=== PATIENT | female | born 1995 | race African-American/Black ===

== ENCOUNTER 2022-01-20 18:15 | Emergency (ER) | payer MEDICAID ==
[~2022-01-20] VITALS: Ht 149.9 cm; Wt 70.3 kg
--- NOTE | 2022-01-20 18:36 | NUR ---
BIBS STATES "I had an 3wks ago since then been feeling SOB and my feet feels swollen/tender". TO ER BED 1, HOOKED TO MONITOR, CHANGED TO [facility]OS[facility], WARM BLANKET PROVIDED. AWAITING MD SAMSON
--- NOTE | 2022-01-20 19:01 | NUR ---
DR GROSS AT BEDSIDE
--- NOTE | 2022-01-20 19:25 | NUR ---
RECEIVED REPORT FROM SUE SLAUGHTER FOR ANALILIA
--- NOTE | 2022-01-20 19:26 | NUR ---
LAB AT BEDSIDE
--- NOTE | 2022-01-20 19:33 | NUR ---
PT RESTING COMFORTABLY IN BED, PROVIDED WARM BLANKET. DENIES ANY PAIN AT THIS TIME. WILL CONTINUE TO MONITOR.
--- NOTE | 2022-01-20 19:38 | NUR ---
XRAY AT BEDSIDE
--- NOTE | 2022-01-20 19:47 | NUR ---
URINE SAMPLE COLLECTED AND SENT TO LAB
[2022-01-20 20:00] LABS: D-DIMER 0.22 mg/L(FEU (0.17-0.50)
[2022-01-20 20:10] LABS: BASOPHILS # (AUTO) 0.1 K/uL (0.0-0.2); BASOPHILS % (AUTO) 0.9 % (0.0-2.0); EOSINOPHILS % (AUTO) 3.9 % (0.0-6.0); HEMATOCRIT 38 % (33-45); HEMOGLOBIN 12.6 g/dL (11.5-14.8); LYMPHOCYTES # (AUTO) 4.1 K/uL (0.8-4.8); LYMPHOCYTES % (AUTO) 46.7 % (20.0-44.0); MEAN CORPUSCULAR HGB CONC 33 g/dl (31.0-36.0); MEAN CORPUSCULAR VOLUME 92 fL (82-100); MONOCYTES # (AUTO) 0.6 K/uL (0.1-1.30); MONOCYTES % (AUTO) 7.2 % (2.0-12.0); NEUTROPHILS # (AUTO) 3.7 K/uL (1.8-8.9); NEUTROPHILS % (AUTO) 41.3 % (43.0-81.0); PLATELET COUNT (AUTO) 318 K/uL (150-450); RED BLOOD CELL COUNT(AUTO) 4.13 MIL/uL (4.0-5.2); WHITE BLOOD COUNT (AUTO) 8.9 K/uL (4.3-11.0)
[2022-01-20 20:47] LABS: CREATININE 0.7 mg/dL (0.6-1.3); POTASSIUM 3.6 mmol/L (3.5-5.1)
[2022-01-20 21:25] LABS: CALCIUM, SERUM 9.8 mg/dL (8.5-10.1)
--- NOTE | 2022-01-20 21:34 | NUR ---
Patient discharged to home in stable condition. Written and verbal after care instructions given. Patient verbalizes understanding of instruction.
[2022-01-20 21:35] VITALS: BP 123/81
== END 2022-01-20 21:35 | disposition home or self-care (01) ==
LOC: ER 18:15
DX: R07.89 Other chest pain (principal); R06.02 Shortness of breath
CPT/HCPCS: 36415; 71045-TC; 80048-TC; 83735-TC; 83880; 84443-TC; 84484-TC; 84703-TC; 85025-TC; 85378-TC; 85730-TC

== ENCOUNTER 2022-06-16 12:48 | Emergency (ER) | payer MEDICAID ==
[~2022-06-16] VITALS: Ht 149.9 cm; Wt 69.9 kg
[2022-06-16 13:06] VITALS: BP 115/69
[2022-06-16] MEDS ORDERED: LORATADINE 10 MG TABLET PO SCH (14:00)
--- NOTE | 2022-06-16 14:15 | NUR ---
RAPID COVID AND RAPID INFLUENZA SWAB DONE AND SENT TO LAB
[2022-06-16] MEDS ORDERED: LORATADINE 10 MG TABLET ONE (14:25)
[2022-06-16 15:15] LABS: BILIRUBIN,URINE NEGATIVE (NEGATIVE); COLOR,URINE YELLOW (YELLOW); LEUKOCYTE ESTERASE ,URINE NEGATIVE (NEGATIVE); NITRITE, URINE NEGATIVE (NEGATIVE); PH,URINE 5.5 (5.0-8.0); PROTEIN,URINE NEGATIVE (NEGATIVE); UGLUCOSE NEGATIVE (NEGATIVE); UROBILINOGEN,URINE 0.2 EU/dL (0.2)
[2022-06-16 16:03] LABS: BACTERIA,URINE Rare /HPF (None Seen); RBC,URINE 0-2 /HPF (0-2); SQUAMOUS EPITHELIAL CELL,UR Few /HPF (None Seen)
--- NOTE | 2022-06-16 16:41 | NUR ---
Patient discharged to home in stable condition. Written and verbal after care instructions given. Patient verbalizes understanding of instruction.
== END 2022-06-16 16:40 | disposition home or self-care (01) ==
LOC: ER 12:48
DX: J06.9 Acute upper respiratory infection, unspecified (principal); B97.89 Other viral agents as the cause of diseases classified elsewhere; Z20.822 Contact with and (suspected) exposure to COVID-19
CPT/HCPCS: 99283; 87426; 87804; 81001; C9803

== ENCOUNTER 2022-06-19 14:39 | Emergency (ER) | payer MEDICAID ==
[~2022-06-19] VITALS: Ht 149.9 cm; Wt 69.9 kg
[2022-06-19] MEDS ORDERED: ACETAMINOPHEN 325 MG TABLET PO ONE (15:00)
[2022-06-19] MEDS ORDERED: ONDANSETRON 4 MG TAB.RAPDIS SL ONE (15:00)
[2022-06-19] MEDS ORDERED: ACETAMINOPHEN 325 MG TABLET ONE (15:12)
[2022-06-19] MEDS ORDERED: ONDANSETRON 4 MG TAB.RAPDIS ONE (15:12)
--- NOTE | 2022-06-19 15:30 | NUR ---
COVID AND FLU SWABS DONE AND SENT TO LAB
[2022-06-19] MEDS ORDERED: FAMO20TA8 PO (15:46)
[2022-06-19] MEDS ORDERED: MAG355OR18 PO (15:46)
[2022-06-19] MEDS ORDERED: ONDA4TAB5 PO (15:46)
--- NOTE | 2022-06-19 16:13 | NUR ---
Patient discharged to home in stable condition. Written and verbal after care instructions given. Patient verbalizes understanding of instruction.
[2022-06-19 16:18] VITALS: BP 133/80
== END 2022-06-19 16:18 | disposition home or self-care (01) ==
LOC: ER 14:49
DX: B34.9 Viral infection, unspecified (principal); Z20.822 Contact with and (suspected) exposure to COVID-19
CPT/HCPCS: 99283; 87426; 87804; Q0162; C9803